=== PATIENT | female | born 1980 ===

== ENCOUNTER 2022-03-21 07:00 | Inpatient (IN) | payer OTHER ==
[~2022-03-21] VITALS: Ht 160 cm; Wt 113.4 kg
[2022-03-21] MEDS ORDERED: LIPITOR20 MG PO (09:53)
[2022-03-21] MEDS ORDERED: LEVOTHYROXINE25 MCG PO (09:53)
[2022-03-21] MEDS ORDERED: D3 + K2 DOTS 11 EACH PO (09:53)
[2022-03-21] MEDS ORDERED: PEPCID AC20 MG PO (09:53)
[2022-03-21] MEDS ORDERED: ZESTRIL10 M1 PO (09:53)
== END 2022-03-24 12:59 | disposition home or self-care (01) | DRG 743 ==
LOC: OB/GYN 03-23 06:22 → O/R 03-23 06:22 → SURH 03-23 07:00 → OB/GYN 03-23 10:42
PROVIDERS: ADMIT Obstetrics & Gynecology Gynecologic Oncology; ATTEND Obstetrics & Gynecology Gynecologic Oncology
PROC: 0UT64ZZ Resection of Left Fallopian Tube, Percutaneous Endoscopic Approach (ICD-10-PCS; 2022-03-23)
PROC: 0UT14ZZ Resection of Left Ovary, Percutaneous Endoscopic Approach (ICD-10-PCS; 2022-03-23)
PROC: 0DNW4ZZ Release Peritoneum, Percutaneous Endoscopic Approach (ICD-10-PCS; 2022-03-23)
PROC: 0DNN4ZZ Release Sigmoid Colon, Percutaneous Endoscopic Approach (ICD-10-PCS; 2022-03-23)
PROC: 0UT94ZZ Resection of Uterus, Percutaneous Endoscopic Approach (ICD-10-PCS; principal; 2022-03-23 07:00)
DX: N84.0 Polyp of corpus uteri (principal); N72 Inflammatory disease of cervix uteri; D27.1 Benign neoplasm of left ovary; Z20.822 Contact with and (suspected) exposure to COVID-19; N73.6 Female pelvic peritoneal adhesions (postinfective)

== ENCOUNTER 2022-03-21 09:54 | Outpatient (CLI) | payer OTHER ==
[~2022-03-21 09:54] MED LIST: D3 + K2 DOTS 11 EACH PO; LEVOTHYROXINE25 MCG PO; LIPITOR20 MG PO; PEPCID AC20 MG PO; ZESTRIL10 M1 PO
== END 2022-03-21 15:00 | disposition home or self-care (01) ==
LOC: LAB 09:54
PROVIDERS: ATTEND Obstetrics & Gynecology Gynecologic Oncology
DX: D25.9 Leiomyoma of uterus, unspecified (principal)

== ENCOUNTER 2022-04-10 20:52 | Emergency (ER) | payer OTHER ==
[~2022-04-10] VITALS: Ht 160 cm; Wt 113.4 kg
[2022-04-11] MEDS ORDERED: DICLOFENAC POTA50 MG PO (08:53)
== END 2022-04-11 10:14 | disposition home or self-care (01) ==
LOC: ER 20:52
DX: N81.6 Rectocele (principal); R10.2 Pelvic and perineal pain

== ENCOUNTER → 2022-04-14 | Emergency (ER) | payer OTHER ==
[~2022-04-14] VITALS: Ht 160 cm; Wt 111.6 kg
[~2022-04-14] MED LIST changes: +DICLOFENAC POTA50 MG PO
== END | disposition left against medical advice (07) ==
LOC: ER 17:35
DX: N93.9 Abnormal uterine and vaginal bleeding, unspecified (principal)